=== PATIENT | male | born 1950 | race Caucasian/White ===

== ENCOUNTER 2017-05-27 09:27 | Day surgery (SDC) | payer OTHER, MEDICARE ==
[~2017-05-27] VITALS: Ht 180.3 cm; Wt 91.3 kg
[~2017-05-27 09:27] MED LIST: 5HTP; ANTI-INFLAMMATORY; ASCO500 PO; ERGO400 PO; FISH1000 PO; MULVITMIND PO; RXTRAM50 PO
[2017-05-27] MEDS ORDERED: ASPI81CH (09:58)
[2017-05-27] MEDS ORDERED: NAPR220 (09:58)
== END 2017-05-27 11:15 | disposition home or self-care (01) ==
LOC: ORSCSDS 09:27
PROVIDERS: Internal Medicine Gastroenterology
PROC: 0DBP8ZX Excision of Rectum, Via Natural or Artificial Opening Endoscopic, Diagnostic (ICD-10-PCS; principal; 2017-05-27 10:45)
DX: Z12.11 Encounter for screening for malignant neoplasm of colon (principal); K62.1 Rectal polyp; K57.30 Diverticulosis of large intestine without perforation or abscess without bleeding; K64.8 Other hemorrhoids; Z87.891 Personal history of nicotine dependence; Z79.899 Other long term (current) drug therapy
CPT/HCPCS: 88305; J7120